=== PATIENT | female | born 1940 | race Caucasian/White ===

== ENCOUNTER 2020-04-05 11:00 | Emergency (ER) | payer MEDICARE ==
[~2020-04-05] VITALS: Ht 157.5 cm; Wt 63.0 kg
[2020-04-05] MEDS ORDERED: LACT1CAP55 PO (12:12)
[2020-04-05] MEDS ORDERED: CLIN300C70 PO (12:12)
[2020-04-05 12:33] VITALS: BP 95/74
== END 2020-04-05 12:35 | disposition home or self-care (01) ==
LOC: ER 11:01
DX: L03.116 Cellulitis of left lower limb (principal); Z88.1 Allergy status to other antibiotic agents; Z88.8 Allergy status to other drugs, medicaments and biological substances; W22.8XXA Striking against or struck by other objects, initial encounter; Y93.89 Activity, other specified; Y92.89 Other specified places as the place of occurrence of the external cause; Y99.8 Other external cause status
CPT/HCPCS: 99283

== ENCOUNTER 2020-08-16 09:12 | Day surgery (SDC) | payer MEDICARE ==
[2020-08-09 17:04] LABS: BASOPHILS # (AUTO) 0.1 X10'3 (0-0.2); BASOPHILS % (AUTO) 1.1 % (0-1); EOSINOPHILS # (AUTO) 0.1 X10'3 (0-0.9); EOSINOPHILS % (AUTO) 2.5 % (0-6); LYMPHOCYTES # (AUTO) 1.3 X10'3 (1.1-4.8); LYMPHOCYTES % (AUTO) 25.1 % (21-51); MEAN CORPUSCULAR HEMOGLOBIN 30.2 PG (27.0-31.0); MEAN CORPUSCULAR HGB CONC 32.8 g/dL (33.0-36.5); MEAN PLATELET VOLUME 8.4 FL (7.4-10.4); MONOCYTES # (AUTO) 0.6 X10'3 (0-0.9); MONOCYTES % (AUTO) 11.5 % (2-12); NEUTROPHILS # (AUTO) 3.1 X10'3 (1.8-7.7); NEUTROPHILS % (AUTO) 59.8 % (42-75); PRE OP HEMATOCRIT 42.8 % (35.0-45.0); PRE OP PLATELET COUNT 285 X10'3 (140-440); RED BLOOD COUNT 4.66 X10'6 (4.20-5.60); RED CELL DISTRIBUTION WIDTH 15.8 % (11.5-14.5)
[2020-08-09 17:21] LABS: ALBUMIN 3.7 G/DL (3.4-5.0); ALBUMIN/GLOBULIN RATIO 0.8 (1.1-1.5); ALKALINE PHOSPHATASE 74 IU/L (46-116); BLOOD UREA NITROGEN 23 MG/DL (7-18); BUN/CREATININE RATIO 28.4 (6.6-38.0); CALCIUM 9.7 MG/DL (8.5-10.1); CHLORIDE 103 MMOL/L (99-107); CREATININE 0.81 MG/DL (0.40-0.90); PRE OP ALT 30 U/L (30-65); PRE OP ANION GAP 6 (8-16); PRE OP AST 28 U/L (10-37); PRE OP BILIRUB, TOTAL 0.5 MG/DL (0.0-1.0); PRE OP GLUCOSE 85 MG/DL (70-104); PRE OP POTASSIUM 4.1 MMOL/L (3.4-5.1); PRE OP SODIUM 139 MMOL/L (135-145); TOTAL CARBON DIOXIDE 29.7 MMOL/L (24-32); TOTAL PROTEIN 8.2 G/DL (6.4-8.2); eGFR 68 ML/MIN
[2020-08-16] VITALS (14 sets, daily range): BP systolic 108–150; BP diastolic 47–66
[~2020-08-16] VITALS: Ht 157.5 cm; Wt 63.0 kg
[~2020-08-16 09:12] MED LIST: APIX5TAB3 PO; BETA1TAB19 PO; DOCUMENT DATE & TIME OF BETA-BLOCKER PO ONE; LISI10TA27 PO; MULTIVIT PO; NITR50CA PO; OSC500T PO; PRAS25CA PO; ROSU20TA31 PO; SOTA80TA46 PO; [UNRECOGNIZED DRUG - OTHER] PO; clindamycin-Cleocin 900mg/D5W 50 ML IV ONE; famotidine 20mg tablet PO ONE; levoFLOXACIN-Levaquin 500mg/D5 100 ML IV ONE; ringers solution, lacted 1,000 ML IV SCH
[2020-08-16] MEDS ORDERED: labetalol 20mg/4ml (5mg/ml) syringe IV PRN (10:55)
[2020-08-16] MEDS ORDERED: acetaminophen 1,000mg/100ml IV 100 ML IV PRN (10:55)
[2020-08-16] MEDS ORDERED: ringers solution, lacted 1,000 ML IV SCH (10:55)
[2020-08-16] MEDS ORDERED: HYDROmorphone/PF 0.2 MG/ML SYRINGE IV PRN ×2 (10:55)
[2020-08-16] MEDS ORDERED: hydrALAZINE 20mg/ml inj. IV PRN (10:55)
[2020-08-16] MEDS ORDERED: proCHLORperazine 10 MG/2 ml inj IV PRN (10:55)
[2020-08-16] MEDS ORDERED: morphine 2 MG/ML inj. syringe IV PRN (10:55)
[2020-08-16] MEDS ORDERED: morphine 4 MG/ML inj SYRINge IV PRN (10:55)
[2020-08-16] MEDS ORDERED: ondansetron/PF 4mg/2ml inj IV PRN (10:55)
[2020-08-16] MEDS ORDERED: meperidine/PF 25mg/ml syringe IV PRN (10:55)
[2020-08-16] MEDS ORDERED: fentaNYL/PF 50MCG/1 ML 2ML syringe ONE (11:15)
[2020-08-16] MEDS ORDERED: midazolam 1 mg/ML 2ml injection ONE (11:15)
[2020-08-16] MEDS ORDERED: LIDOcaine 2% (20mg/ml) 5ml vial ONE (11:36)
[2020-08-16] MEDS ORDERED: ondansetron/PF 4mg/2ml inj ONE (11:36)
[2020-08-16] MEDS ORDERED: propofol inj 20 ML IV ONE (11:36)
[2020-08-16] MEDS ORDERED: dexamethasone sod phosphate 4mg/ml inj. ONE (11:37)
--- NOTE | 2020-08-16 11:58 | NUR ---
Received patient from OR via [facility] , accompanied by Anesthesiologist Dr. Schaeffer and ASSEMBLER INSULATOR report given by Anesthesiolgist. Patient drowsy upon arrival. Supplemental O2 with oral airway(7) and nasal airway(8)in place. Warming measures started. Brissa pad in place no drainage. Addendum: 08/16/20 at 1338 by Jenny Arthur RN Amended: Links added.
--- NOTE | 2020-08-16 13:38 | NUR ---
At 1205 oral airway removed and at 1225 nasal trumpet no bleeding noted.
--- NOTE | 2020-08-16 14:28 | NUR ---
PATIENT UP AND ABLE TO AMBULATE SAFELY. TOLERATING ORAL FLUIDS. VOIDED X1. DC INSTRUCTIONS GIVEN AND GONE OVER WITH PATIENT. VERBALIZED UNDERSTANDING OF INSTRUCTIONS. PATIENT DC'd TO HOME VIA WC TO PRIVATE VEHICLE WITHOUT INCIDENT. Addendum: 08/16/20 at 1948 by Jenny Arthur RN Amended: Links added.
== END 2020-08-16 14:28 | disposition home or self-care (01) ==
LOC: PAS 09:12
PROVIDERS: ATTEND Obstetrics & Gynecology Obstetrics
DX: N95.0 Postmenopausal bleeding (principal); N85.00 Endometrial hyperplasia, unspecified; F41.9 Anxiety disorder, unspecified; F32.9 Major depressive disorder, single episode, unspecified; I10 Essential (primary) hypertension; I48.91 Unspecified atrial fibrillation; G47.33 Obstructive sleep apnea (adult) (pediatric); M81.0 Age-related osteoporosis without current pathological fracture; Z79.899 Other long term (current) drug therapy; Z79.2 Long term (current) use of antibiotics; Z79.01 Long term (current) use of anticoagulants; Z87.891 Personal history of nicotine dependence; Z72.89 Other problems related to lifestyle; Z98.890 Other specified postprocedural states; Z88.8 Allergy status to other drugs, medicaments and biological substances; Z88.1 Allergy status to other antibiotic agents; Z20.822 Contact with and (suspected) exposure to COVID-19
CPT/HCPCS: 36415; 58558; 71046; 80053; 82948; 85025; 86885; 86900; 86901; J1100; J1956; J2001; J2250; J2405; J2704; J3010; J7030; U0003; 87635; 88305; A4355; A4618; A6258; A7000; J7120

== ENCOUNTER 2022-06-19 15:30 | Emergency (ER) | payer MEDICARE ==
[~2022-06-19] VITALS: Ht 157.5 cm; Wt 64.1 kg
[~2022-06-19 15:30] MED LIST changes: -DOCUMENT DATE & TIME OF BETA-BLOCKER PO ONE; -clindamycin-Cleocin 900mg/D5W 50 ML IV ONE; -famotidine 20mg tablet PO ONE; -levoFLOXACIN-Levaquin 500mg/D5 100 ML IV ONE; -ringers solution, lacted 1,000 ML IV SCH
[2022-06-19 16:04] LABS: BASOPHILS # (AUTO) 0.1 X10'3 (0-0.2); BASOPHILS % (AUTO) 0.9 % (0-1); EOSINOPHILS # (AUTO) 0.4 X10'3 (0-0.9); EOSINOPHILS % (AUTO) 5.3 % (0-6); HEMATOCRIT 40.5 % (35.0-45.0); HEMOGLOBIN 13.3 g/dl (12.0-16.0); LYMPHOCYTES # (AUTO) 1.1 X10'3 (1.1-4.8); LYMPHOCYTES % (AUTO) 14.9 % (21-51); MEAN CORPUSCULAR HEMOGLOBIN 29.7 PG (27.0-31.0); MEAN CORPUSCULAR HGB CONC 32.8 g/dL (33.0-36.5); MEAN CORPUSCULAR VOLUME 90.3 FL (78-98); MEAN PLATELET VOLUME 8.9 FL (7.4-10.4); MONOCYTES # (AUTO) 0.7 X10'3 (0-0.9); MONOCYTES % (AUTO) 9.2 % (2-12); NEUTROPHILS # (AUTO) 5.1 X10'3 (1.8-7.7); NEUTROPHILS % (AUTO) 69.7 % (42-75); PLATELET COUNT 311 X10'3 (140-440); RED BLOOD COUNT 4.49 X10'6 (4.20-5.60); RED CELL DISTRIBUTION WIDTH 16.2 % (11.5-14.5); WHITE BLOOD COUNT 7.3 X10'3 (4.5-11.0)
[2022-06-19 16:20] LABS: ALANINE AMINOTRANSFERASE 15 U/L (12-78); ALBUMIN 3.8 G/DL (3.4-5.0); ALBUMIN/GLOBULIN RATIO 0.9 (1.1-1.5); ALKALINE PHOSPHATASE 106 IU/L (46-116); ANION GAP 8 (8-16); ASPARTATE AMINO TRANSFERASE 22 U/L (10-37); BILIRUBIN,TOTAL 0.9 MG/DL (0.1-1.0); BLOOD UREA NITROGEN 21 MG/DL (7-18); BUN/CREATININE RATIO 20.8 (6.6-38.0); CHLORIDE 95 MMOL/L (99-107); CREATININE 1.01 MG/DL (0.40-0.90); GLUCOSE 95 MG/DL (70-104); POTASSIUM 3.5 MMOL/L (3.5-5.1); SODIUM 135 MMOL/L (135-145); TOTAL CARBON DIOXIDE 32.1 MMOL/L (24-32); TOTAL PROTEIN 8.2 G/DL (6.4-8.2); eGFR 53 ML/MIN
[2022-06-19 16:26] LABS: MAGNESIUM 2.1 MG/DL (1.5-2.4)
[2022-06-19] MEDS ORDERED: normal saline 1000ML IV soln IVB ONE ×2 (16:40→18:55)
[2022-06-19 17:25] LABS: D-DIMER 3.96 MG/L FEU (0-0.50)
[2022-06-19] MEDS ORDERED: iohexol 350MG/ML 100ml bottle IV ONE (17:42)
[2022-06-19] MEDS ORDERED: diltiazem 5mg/ml 5ml inj. IV ONE (18:55)
[2022-06-19 20:00] VITALS: BP 119/53
== END 2022-06-19 20:12 | disposition home or self-care (01) ==
LOC: ER 15:32
DX: I48.20 Chronic atrial fibrillation, unspecified (principal); I48.92 Unspecified atrial flutter; Z88.1 Allergy status to other antibiotic agents; Z79.01 Long term (current) use of anticoagulants; Z79.899 Other long term (current) drug therapy
CPT/HCPCS: 36415; 71275; 80053; 83735; 83880; 84484; 85025; 85379; 93005; 96374; 99285; J3490; J7030; J7040; Q9967

== ENCOUNTER 2023-11-12 10:31 | Emergency (ER) | payer MEDICARE ==
[~2023-11-12] VITALS: Ht 157.5 cm; Wt 63.6 kg
[~2023-11-12 10:31] MED LIST changes: -ROSU20TA31 PO; +ROSU20TA73 PO
[2023-11-12 10:41] VITALS: BP 178/77; PULSE 57; O2SAT 99
[2023-11-12 11:54] VITALS: RESP 17; TEMP 98
== END 2023-11-12 11:45 | disposition home or self-care (01) ==
LOC: ER 10:32
DX: I83.891 Varicose veins of right lower extremity with other complications (principal); Z88.1 Allergy status to other antibiotic agents; Z88.8 Allergy status to other drugs, medicaments and biological substances; Z79.899 Other long term (current) drug therapy
CPT/HCPCS: 99281; A6258; A6449

== ENCOUNTER 2024-06-16 11:24 | Day surgery (SDC) | payer MEDICARE ==
[2024-06-09 15:21] LABS: BILIRUBIN,URINE NEGATIVE (Neg); CLARITY,URINE CLEAR (Clear); COLOR,URINE YELLOW (Yellow); GLUCOSE, URINE NEGATIVE (Neg); KETONES,URINE NEGATIVE (Neg); LEUKOCYTE ESTERASE ,URINE NEGATIVE (Neg); NITRITES, URINE NEGATIVE (Neg); OCCULT BLOOD,URINE NEGATIVE (Neg); PROTEIN,URINE NEGATIVE (Neg); UROBILINOGEN,URINE 0.2 E.U/dL (0.2-1.0)
[2024-06-09 15:28] LABS: BASOPHILS # (AUTO) 0.1 X10'3 (0-0.2); EOSINOPHILS # (AUTO) 0.2 X10'3 (0-0.9); EOSINOPHILS % (AUTO) 4.4 % (0-6); LYMPHOCYTES # (AUTO) 1.2 X10'3 (1.1-4.8); LYMPHOCYTES % (AUTO) 21.7 % (21-51); MEAN CORPUSCULAR HEMOGLOBIN 31.1 PG (27.0-31.0); MEAN CORPUSCULAR HGB CONC 33.2 g/dL (33.0-36.5); MEAN CORPUSCULAR VOLUME 93.5 FL (78-98); MONOCYTES # (AUTO) 0.6 X10'3 (0-0.9); MONOCYTES % (AUTO) 10.7 % (2-12); NEUTROPHILS # (AUTO) 3.3 X10'3 (1.8-7.7); NEUTROPHILS % (AUTO) 62.2 % (42-75); PRE OP HEMATOCRIT 41.1 % (35.0-45.0); PRE OP HEMOGLOBIN 13.6 g/dL (12.0-16.0); PRE OP PLATELET COUNT 215 X10'3 (140-440); PRE OP WHITE BLOOD COUNT 5.4 10'3 (4.8-10.8); RED BLOOD COUNT 4.39 X10'6 (4.20-5.60); RED CELL DISTRIBUTION WIDTH 15.3 % (11.5-14.5)
[2024-06-09 15:29] LABS: UA COLLECTION TYPE CLN CATCH MIDSTREAM
[2024-06-09 15:42] LABS: ALBUMIN 3.4 G/DL (3.4-5.0); ALBUMIN/GLOBULIN RATIO 0.9 (1.1-1.5); ALKALINE PHOSPHATASE 99 IU/L (46-116); BLOOD UREA NITROGEN 24 MG/DL (7-18); BUN/CREATININE RATIO 21.6 (10.0-20.0); CALCIUM 9.6 MG/DL (8.5-10.1); CHLORIDE 104 MMOL/L (99-107); CREATININE 1.11 MG/DL (0.40-0.90); PRE OP ALT 27 U/L (30-65); PRE OP ANION GAP 6 (8-16); PRE OP AST 30 U/L (10-37); PRE OP BILIRUB, TOTAL 0.8 MG/DL (0.0-1.0); PRE OP GLUCOSE 111 MG/DL (70-104); PRE OP POTASSIUM 4.3 MMOL/L (3.4-5.1); PRE OP SODIUM 141 MMOL/L (135-145); TOTAL CARBON DIOXIDE 31.1 MMOL/L (24-32); TOTAL PROTEIN 7.4 G/DL (6.4-8.2); eGFR 47 ML/MIN
[~2024-06-16] VITALS: Ht 157.5 cm; Wt 67.9 kg
[2024-06-16] MEDS: ringers solution, lacted 1,000 ML IV SCH (05:30)
[2024-06-16] MEDS: clindamycin-Cleocin 900mg/D5W 50 ML IV ONE (05:30)
[~2024-06-16 11:24] MED LIST changes: +ALEN70TA80 PO; -BETA1TAB19 PO; +COLLAGEN COMPLEX; +DOCUMENT DATE & TIME OF BETA-BLOCKER PO ONE; +EST1T PO; +HYDR12.55 PO; -LISI10TA27 PO; +MAGN400C PO; +METO-395 PO; -MULTIVIT PO; -OSC500T PO; -PRAS25CA PO; -ROSU20TA73 PO; +ROSU20TA98 PO; -SOTA80TA46 PO; -[UNRECOGNIZED DRUG - OTHER] PO
[2024-06-16] MEDS: famotidine 20mg tablet PO ONE (12:08)
[2024-06-16] MEDS ORDERED: morphine 4 MG/ML inj SYRINge IV PRN (12:25)
[2024-06-16] MEDS ORDERED: fentaNYL/PF 50MCG/1 ML 2ML syringe IV PRN ×2 (12:25)
[2024-06-16] MEDS ORDERED: hydrALAZINE 20mg/ml inj. IV PRN (12:25)
[2024-06-16] MEDS ORDERED: labetalol 20mg/4ml (5mg/ml) syringe IV PRN (12:25)
[2024-06-16] MEDS ORDERED: morphine 2 MG/ML inj. syringe IV PRN (12:25)
[2024-06-16] MEDS ORDERED: ondansetron/PF 4mg/2ml inj IV PRN (12:25)
[2024-06-16] MEDS ORDERED: ringers solution, lacted 1,000 ML IV SCH (12:25)
[2024-06-16 13:18] VITALS: BP 172/69; PULSE 97; RESP 16; TEMP 97.1; O2SAT 98
[2024-06-16 13:20] VITALS: BP 172/69; PULSE 97; RESP 16; TEMP 97.1; O2SAT 98
[2024-06-16 13:22] VITALS: BP 172/69; PULSE 97; RESP 16; TEMP 97.1; O2SAT 98
[2024-06-16 13:26] VITALS: RESP 16; O2SAT 98
== END 2024-06-16 16:25 | disposition home or self-care (01) ==
LOC: PAS 11:24
PROVIDERS: ATTEND Obstetrics & Gynecology Obstetrics
DX: N84.0 Polyp of corpus uteri (principal); Z53.8 Procedure and treatment not carried out for other reasons; Z79.899 Other long term (current) drug therapy; Z98.890 Other specified postprocedural states; Z88.8 Allergy status to other drugs, medicaments and biological substances; M81.0 Age-related osteoporosis without current pathological fracture; M19.90 Unspecified osteoarthritis, unspecified site; J44.9 Chronic obstructive pulmonary disease, unspecified; G47.30 Sleep apnea, unspecified; E78.5 Hyperlipidemia, unspecified; I48.91 Unspecified atrial fibrillation; Z87.891 Personal history of nicotine dependence; Z79.01 Long term (current) use of anticoagulants
CPT/HCPCS: 36415; 71046; 80053; 81003; 82948; 85025; 86885; 86900; 86901; J3490; J7120